=== PATIENT | female | born 1980 | race Two or more races ===

== ENCOUNTER 2023-01-08 13:48 | Emergency (ER) | payer SELFPAY ==
[~2023-01-08] VITALS: Ht 152.4 cm; Wt 70.4 kg
[2023-01-08 15:06] LABS: Urine Bacteria FEW /hpf (None Seen); Urine Blood 3+ /uL (Negative); Urine Budding Yeast FEW /hpf (None Seen); Urine Specific Gravity 1.003 (1.001-1.035); Urine WBC 12 /hpf (0 - 5)
[2023-01-08] MEDS ORDERED: ACETAMINOPHEN 500 MG TAB PO ONE (17:00)
[2023-01-08] MEDS ORDERED: cefTRIAXone SOD 1,000 MG VL IM ONE (17:00)
[2023-01-08] MEDS ORDERED: LIDOCAINE 1% HCL (LOCAL ANESTH.) INJ 20ML MDV ID ONE (17:00)
[2023-01-08 17:34] VITALS: BP 118/47
[2023-01-08] MEDS ORDERED: HYDR-4902 PO ×2 (17:37)
[2023-01-08] MEDS ORDERED: CEPH-510 PO (17:37)
[2023-01-08] MEDS ORDERED: PHEN1TAB38 PO (17:37)
[2023-01-08] MEDS ORDERED: HYDR-4798 PO (18:58)
== END 2023-01-08 17:55 | disposition home or self-care (01) ==
LOC: ER 13:48
DX: N20.0 Calculus of kidney (principal); Z79.899 Other long term (current) drug therapy
CPT/HCPCS: 74176; 81001; 81025; 96372; 99285; J0696